=== PATIENT | male | born 1940 | race African-American/Black ===

== ENCOUNTER 2022-02-10 15:16 | Inpatient (IN) ==
[2022-02-10 18:00] LABS: Basophils # 0.1 10*3/uL (0.0-0.2); Basophils % 0.6 % (0.0-0.8); Eosinophils # 0.1 10*3/uL (0.0-0.87); Eosinophils % 0.4 % (0.00-10.9); Hematocrit 35.1 VOL% (42.0-52.0); Hemoglobin 11.6 GM/DL (14.0-18.0); Immature Granulocytes % 5.2 %; Immature Granulocytes Absolute 0.89 #; Lymphocytes # 1.2 10*3/uL (1.4-4.0); Lymphocytes % 6.9 % (21.2-54.2); Mean Platelet Volume 10.5 FL (9.6-12.0); Monocytes # 1.2 10*3/uL (0.11-0.8); Monocytes % 7.1 % (1.7-12.7); Neutrophils % 79.8 % (38.7-73.9); Platelet Count 296 T/CUMM (130-400); Red Blood Count 4.13 MC/CUMM (3.8-5.5); Red Cell Distribution Width 15.9 % (9.3-17.3); White Blood Count 17.2 T/CUMM (4-12)
[2022-02-10 18:14] LABS: INR 1.2; PT Patient Result 12.8 SECS (10.5-12.0)
[2022-02-10 18:24] LABS: Albumin 2.1 G/DL (3.4-5.0); Bilirubin,Total 0.5 MG/DL (0.20-1.00); Calcium 8.6 MG/DL (8.5-10.1); Osmolality,Calculated 279.7 MOS/KG (273-304); Potassium 3.2 MMOL/L (3.5-5.1); Total Protein 6.2 G/DL (6.4-8.2)
[2022-02-10 18:32] LABS: Band Neutrophils 1 % (0-10); Lymphocytes 10 % (20-55); Myelocytes 1 %; Total Cells Counted 100
[2022-02-10 18:33] LABS: Platelet Estimate Adequate
[2022-02-10] MEDS ORDERED: AZITHROMYCIN INJ 500 MG in SODIUM CHLORIDE 0.9% 250 ML IV STA (18:50)
[2022-02-10] MEDS ORDERED: cefTRIAXone 1,000 MG in SODIUM CHLORIDE 0.9% 100 ML IV STA (18:50)
[2022-02-10 19:11] LABS: Hyaline Casts,Urine 2 /LPF (0-3); Mucus,Urine Occasional /LPF (Occasional); RBC,Urine 10 /HPF (0-4); Squamous Epithelial Cell,Urine Occasional /HPF (0-10)
[2022-02-10 19:13] LABS: Glucose,Urine (UA) Negative (Negative); Ketones,Urine Trace mg/dL (Negative); Nitrite,Urine Negative (Negative); Urine Appearance Clear (Clear); Urine Color Yellow (Yellow)
[2022-02-10 19:14] LABS: Bilirubin,Urine Small mg/dL (Negative); Blood, Urine Negative (Negative)
[2022-02-10] MEDS ORDERED: ACETAMINOPHEN 325 MG TABLET PO PRN (19:35)
[2022-02-10] MEDS ORDERED: MORPHINE 2 MG/1 ML SYRINGE IV PRN (19:35)
[2022-02-10] MEDS ORDERED: ONDANSETRON 4 MG/2 ML VIAL IV PRN (19:35)
[2022-02-10] MEDS ORDERED: GLUCAGON 1 MG VIAL IM PRN (19:35)
[2022-02-10] MEDS ORDERED: SODIUM CHLORIDE 0.9% 1,000 ML IV SCH (21:00)
[2022-02-10] MEDS: INSULIN LISPRO 100 UNIT/ML SUBCUT SCH (21:00)
[2022-02-10] MEDS ORDERED: POTASSIUM CHLORIDE 20 MEQ TABLET PO ONE (21:30)
[2022-02-11] MEDS: ALBUTEROL/IPRATROPIUM 3 ML NEB RESP TX SCH ×4 (00:15→19:15)
[2022-02-11 03:03] LABS: Basophils # 0.1 10*3/uL (0.0-0.2); Basophils % 0.7 % (0.0-0.8); Eosinophils # 0.2 10*3/uL (0.0-0.87); Hematocrit 31.6 VOL% (42.0-52.0); Hemoglobin 10.6 GM/DL (14.0-18.0); Immature Granulocytes Absolute 1.03 #; Lymphocytes # 1.6 10*3/uL (1.4-4.0); Lymphocytes % 10.7 % (21.2-54.2); Mean Corpuscular HGB Conc 33.5 GM/DL (32-36); Mean Corpuscular Volume 84.3 FL (87-102); Mean Platelet Volume 10.1 FL (9.6-12.0); Monocytes # 1.2 10*3/uL (0.11-0.8); Neutrophils % 72.6 % (38.7-73.9); Platelet Count 272 T/CUMM (130-400); Red Blood Count 3.75 MC/CUMM (3.8-5.5); Red Cell Distribution Width 15.8 % (9.3-17.3); White Blood Count 14.8 T/CUMM (4-12)
[2022-02-11 03:38] LABS: Band Neutrophils 1 % (0-10); Eosinophils 1 % (0-10); Lymphocytes 8 % (20-55); Platelet Estimate Adequate; Total Cells Counted 100
[2022-02-11 03:47] LABS: Albumin 1.7 G/DL (3.4-5.0); Bilirubin,Total 0.4 MG/DL (0.20-1.00); Calcium 8.6 MG/DL (8.5-10.1); Osmolality,Calculated 280.7 MOS/KG (273-304); Potassium 3.4 MMOL/L (3.5-5.1); Thyroid Stimulating Hormone 1.19 uIU/ml (0.358-3.74); Total Protein 6.1 G/DL (6.4-8.2)
[2022-02-11] MEDS: PANTOPRAZOLE 40 MG TABLET PO SCH (06:29)
[2022-02-11] MEDS: INSULIN LISPRO 100 UNIT/ML SUBCUT SCH ×4 (08:53→21:13)
[2022-02-11] MEDS ORDERED: MAGNESIUM SULF RIDER 2 GM/50 ML PREMIX IV ONE (16:17)
[2022-02-11] MEDS ORDERED: POTASSIUM CHLORIDE 10 MEQ TABLET PO ONE (16:18)
[2022-02-11] MEDS: cefTRIAXone 1,000 MG in SODIUM CHLORIDE 0.9% 100 ML IV SCH (20:48)
[2022-02-11] MEDS: SACUBITRIL/VALSARTAN 49-51 MG TABLET PO SCH (20:48)
[2022-02-11] MEDS: ROSUVASTATIN 10 MG TABLET PO SCH (20:48)
[2022-02-11] MEDS ORDERED: AMIODARONE 200 MG TABLET PO SCH (21:00)
[2022-02-11] MEDS: AZITHROMYCIN INJ 500 MG in SODIUM CHLORIDE 0.9% 250 ML IV SCH (21:20)
[2022-02-12] MEDS: ALBUTEROL/IPRATROPIUM 3 ML NEB RESP TX SCH ×4 (01:09→20:05)
[2022-02-12 05:22] LABS: Basophils # 0.1 10*3/uL (0.0-0.2); Basophils % 0.4 % (0.0-0.8); Eosinophils # 0.3 10*3/uL (0.0-0.87); Eosinophils % 1.2 % (0.00-10.9); Hematocrit 29.8 VOL% (42.0-52.0); Hemoglobin 10.1 GM/DL (14.0-18.0); Immature Granulocytes % 5.4 %; Immature Granulocytes Absolute 1.16 #; Lymphocytes # 1.7 10*3/uL (1.4-4.0); Lymphocytes % 7.7 % (21.2-54.2); Mean Corpuscular HGB Conc 33.9 GM/DL (32-36); Mean Corpuscular Volume 84.4 FL (87-102); Mean Platelet Volume 10.8 FL (9.6-12.0); Monocytes # 1.6 10*3/uL (0.11-0.8); Monocytes % 7.4 % (1.7-12.7); Neutrophils % 77.9 % (38.7-73.9); Platelet Count 300 T/CUMM (130-400); Red Blood Count 3.53 MC/CUMM (3.8-5.5); Red Cell Distribution Width 15.9 % (9.3-17.3); White Blood Count 21.6 T/CUMM (4-12)
[2022-02-12] MEDS: PANTOPRAZOLE 40 MG TABLET PO SCH (05:43)
[2022-02-12 05:46] LABS: Calcium 7.8 MG/DL (8.5-10.1); Osmolality,Calculated 282.3 MOS/KG (273-304); Potassium 3.3 MMOL/L (3.5-5.1)
[2022-02-12 05:47] LABS: Eosinophils 2 % (0-10); Lymphocytes 6 % (20-55); Platelet Estimate Adequate; Total Cells Counted 100
[2022-02-12 05:56] LABS: Risk Ratio 3.93; VLDL Cholesterol 18.2 MG/DL
[2022-02-12] MEDS ORDERED: POTASSIUM CHLORIDE 20 MEQ TABLET PO ONE (08:58)
[2022-02-12] MEDS ORDERED: MAGNESIUM SULF RIDER 2 GM/50 ML PREMIX IV ONE (08:59)
[2022-02-12] MEDS: SACUBITRIL/VALSARTAN 49-51 MG TABLET PO SCH ×2 (09:24→22:20)
[2022-02-12] MEDS: METOPROLOL SUCCINATE XL 25 MG TABLET PO SCH (09:24)
[2022-02-12] MEDS: AMIODARONE 200 MG TABLET PO SCH ×2 (09:24→22:20)
[2022-02-12] MEDS: INSULIN LISPRO 100 UNIT/ML SUBCUT SCH ×4 (09:26→22:20)
[2022-02-12] MEDS: MAGNESIUM OXIDE 400 MG TABLET PO SCH ×2 (09:29→22:20)
[2022-02-12] MEDS: APIXABAN 5 MG TABLET PO SCH ×2 (09:29→22:20)
[2022-02-12] MEDS: DEXTROSE 10% 250 ML BAG IV PRN (19:27)
[2022-02-12] MEDS: ROSUVASTATIN 10 MG TABLET PO SCH (22:20)
[2022-02-12] MEDS: cefTRIAXone 1,000 MG in SODIUM CHLORIDE 0.9% 100 ML IV SCH (22:20)
[2022-02-12] MEDS: AZITHROMYCIN INJ 500 MG in SODIUM CHLORIDE 0.9% 250 ML IV SCH (23:14)
[2022-02-13] MEDS: ALBUTEROL/IPRATROPIUM 3 ML NEB RESP TX SCH ×4 (01:30→19:26)
[2022-02-13 05:12] LABS: Basophils # 0.1 10*3/uL (0.0-0.2); Basophils % 0.6 % (0.0-0.8); Eosinophils # 0.3 10*3/uL (0.0-0.87); Eosinophils % 1.5 % (0.00-10.9); Hematocrit 30.8 VOL% (42.0-52.0); Hemoglobin 10.3 GM/DL (14.0-18.0); Immature Granulocytes % 5.8 %; Immature Granulocytes Absolute 1.23 #; Lymphocytes # 1.7 10*3/uL (1.4-4.0); Mean Corpuscular HGB Conc 33.4 GM/DL (32-36); Mean Corpuscular Volume 83.2 FL (87-102); Mean Platelet Volume 10.3 FL (9.6-12.0); Monocytes # 1.3 10*3/uL (0.11-0.8); Monocytes % 6.1 % (1.7-12.7); Platelet Count 309 T/CUMM (130-400); Red Cell Distribution Width 15.7 % (9.3-17.3); White Blood Count 21.3 T/CUMM (4-12)
[2022-02-13 05:28] LABS: Calcium 8.5 MG/DL (8.5-10.1); Osmolality,Calculated 276.5 MOS/KG (273-304); Potassium 3.2 MMOL/L (3.5-5.1)
[2022-02-13 05:39] LABS: Lymphocytes 10 % (20-55); Platelet Estimate Normal; Total Cells Counted 100
[2022-02-13] MEDS: PANTOPRAZOLE 40 MG TABLET PO SCH (05:43)
[2022-02-13 09:14] LABS: % Iron Saturation 14.3 % (18-50)
[2022-02-13] MEDS ORDERED: POTASSIUM CHLORIDE 20 MEQ TABLET PO ONE (09:30)
[2022-02-13] MEDS: AMIODARONE 200 MG TABLET PO SCH ×2 (10:19→21:35)
[2022-02-13] MEDS: ASPIRIN CHEW 81 MG TABLET PO SCH (10:19)
[2022-02-13] MEDS: APIXABAN 5 MG TABLET PO SCH ×2 (10:19→20:28)
[2022-02-13] MEDS: SACUBITRIL/VALSARTAN 49-51 MG TABLET PO SCH ×2 (10:19→20:27)
[2022-02-13] MEDS: MAGNESIUM OXIDE 400 MG TABLET PO SCH ×2 (10:19→20:28)
[2022-02-13] MEDS: METOPROLOL SUCCINATE XL 25 MG TABLET PO SCH (10:19)
[2022-02-13] MEDS: INSULIN LISPRO 100 UNIT/ML SUBCUT SCH ×4 (11:07→21:36)
[2022-02-13] MEDS: DEXTROSE 10% 250 ML BAG IV PRN (15:15)
[2022-02-13] MEDS: DEXT 5% NACL 0.9% KCL 40 MEQ 40 MEQ/1,000 ML BAG IV SCH (17:13)
[2022-02-13] MEDS: ROSUVASTATIN 10 MG TABLET PO SCH (20:28)
[2022-02-13] MEDS: cefTRIAXone 1,000 MG in SODIUM CHLORIDE 0.9% 100 ML IV SCH (20:29)
[2022-02-13] MEDS: AZITHROMYCIN INJ 500 MG in SODIUM CHLORIDE 0.9% 250 ML IV SCH (20:29)
[2022-02-14] MEDS: ALBUTEROL/IPRATROPIUM 3 ML NEB RESP TX SCH ×4 (00:25→19:31)
[2022-02-14] MEDS: PANTOPRAZOLE 40 MG TABLET PO SCH (05:48)
[2022-02-14] MEDS: DEXT 5% NACL 0.9% KCL 40 MEQ 40 MEQ/1,000 ML BAG IV SCH ×2 (05:48→23:07)
[2022-02-14] MEDS: FERRIC GLUCONATE COMPLEX 125 MG in SODIUM CHLORIDE 0.9% 100 ML IV SCH (09:23)
[2022-02-14] MEDS: ASPIRIN CHEW 81 MG TABLET PO SCH (09:23)
[2022-02-14] MEDS: CHOLECALCIFEROL 5,000 UNIT TABLET PO SCH (09:23)
[2022-02-14] MEDS: METOPROLOL SUCCINATE XL 25 MG TABLET PO SCH (09:23)
[2022-02-14] MEDS: AMIODARONE 200 MG TABLET PO SCH ×2 (09:23→21:01)
[2022-02-14] MEDS: SACUBITRIL/VALSARTAN 49-51 MG TABLET PO SCH ×2 (09:23→21:01)
[2022-02-14] MEDS: APIXABAN 5 MG TABLET PO SCH ×2 (09:23→21:01)
[2022-02-14] MEDS: MAGNESIUM OXIDE 400 MG TABLET PO SCH ×2 (09:23→21:01)
[2022-02-14] MEDS: INSULIN LISPRO 100 UNIT/ML SUBCUT SCH ×4 (09:24→23:07)
[2022-02-14] MEDS ORDERED: ONDANSETRON 4 MG/2 ML VIAL IV ONE (13:40)
[2022-02-14] MEDS: ROSUVASTATIN 10 MG TABLET PO SCH (21:01)
[2022-02-14] MEDS: TEMAZEPAM 15 MG CAPSULE PO SCH (21:01)
[2022-02-14] MEDS: cefTRIAXone 1,000 MG in SODIUM CHLORIDE 0.9% 100 ML IV SCH (21:02)
[2022-02-14] MEDS: AZITHROMYCIN INJ 500 MG in SODIUM CHLORIDE 0.9% 250 ML IV SCH (21:02)
[2022-02-15] MEDS: ALBUTEROL/IPRATROPIUM 3 ML NEB RESP TX SCH ×4 (00:06→19:40)
[2022-02-15] MEDS: PANTOPRAZOLE 40 MG TABLET PO SCH ×2 (05:18→22:08)
[2022-02-15] MEDS: DEXT 5% NACL 0.9% KCL 40 MEQ 40 MEQ/1,000 ML BAG IV SCH ×2 (05:19→08:20)
[2022-02-15 05:28] LABS: Basophils # 0.1 10*3/uL (0.0-0.2); Basophils % 0.7 % (0.0-0.8); Eosinophils # 0.4 10*3/uL (0.0-0.87); Eosinophils % 2.2 % (0.00-10.9); Hemoglobin 10.2 GM/DL (14.0-18.0); Immature Granulocytes % 5.2 %; Lymphocytes # 1.5 10*3/uL (1.4-4.0); Lymphocytes % 7.8 % (21.2-54.2); Mean Corpuscular HGB Conc 32.9 GM/DL (32-36); Mean Corpuscular Volume 85.9 FL (87-102); Mean Platelet Volume 10.3 FL (9.6-12.0); Monocytes # 1.2 10*3/uL (0.11-0.8); Monocytes % 6.4 % (1.7-12.7); Neutrophils % 77.7 % (38.7-73.9); Platelet Count 378 T/CUMM (130-400); Red Blood Count 3.61 MC/CUMM (3.8-5.5); White Blood Count 19.2 T/CUMM (4-12)
[2022-02-15 05:43] LABS: Calcium 8.3 MG/DL (8.5-10.1); Osmolality,Calculated 281.1 MOS/KG (273-304); Potassium 3.6 MMOL/L (3.5-5.1)
[2022-02-15 06:03] LABS: Lymphocytes 9 % (20-55); Myelocytes 1 %; Total Cells Counted 100
[2022-02-15 06:04] LABS: Hypochromia Slight; Target Cells Slight
[2022-02-15 06:05] LABS: Microcytosis 1+
[2022-02-15 06:06] LABS: Platelet Estimate Normal
[2022-02-15] MEDS: INSULIN LISPRO 100 UNIT/ML SUBCUT SCH ×4 (08:14→21:41)
[2022-02-15] MEDS: DEXTROSE 10% 250 ML BAG IV PRN ×2 (09:54→12:06)
[2022-02-15] MEDS: METOPROLOL SUCCINATE XL 25 MG TABLET PO SCH (11:10)
[2022-02-15] MEDS: SACUBITRIL/VALSARTAN 49-51 MG TABLET PO SCH ×2 (11:10→21:41)
[2022-02-15] MEDS: AMIODARONE 200 MG TABLET PO SCH ×2 (11:11→21:41)
[2022-02-15] MEDS: APIXABAN 5 MG TABLET PO SCH ×2 (11:12→21:41)
[2022-02-15] MEDS: MAGNESIUM OXIDE 400 MG TABLET PO SCH ×2 (11:12→21:41)
[2022-02-15] MEDS: CHOLECALCIFEROL 5,000 UNIT TABLET PO SCH (11:13)
[2022-02-15] MEDS: ASPIRIN CHEW 81 MG TABLET PO SCH (11:13)
[2022-02-15] MEDS: FERRIC GLUCONATE COMPLEX 125 MG in SODIUM CHLORIDE 0.9% 100 ML IV SCH (11:15)
[2022-02-15 12:58] LABS: AFP Tumor 2.6 NG/ML (0-8); Cancer Antigen 19-9 32.89 U/ML (0-35)
[2022-02-15] MEDS: DEXTROSE 5% 1,000 ML IV SCH (15:48)
[2022-02-15] MEDS: cefTRIAXone 1,000 MG in SODIUM CHLORIDE 0.9% 100 ML IV SCH (21:41)
[2022-02-15] MEDS: ROSUVASTATIN 10 MG TABLET PO SCH (21:41)
[2022-02-15] MEDS: TEMAZEPAM 15 MG CAPSULE PO SCH (21:41)
[2022-02-15] MEDS: AZITHROMYCIN INJ 500 MG in SODIUM CHLORIDE 0.9% 250 ML IV SCH (22:11)
[2022-02-16] MEDS: ALBUTEROL/IPRATROPIUM 3 ML NEB RESP TX SCH ×4 (00:40→19:37)
[2022-02-16 04:58] LABS: Basophils # 0.1 10*3/uL (0.0-0.2); Basophils % 0.4 % (0.0-0.8); Eosinophils # 0.4 10*3/uL (0.0-0.87); Eosinophils % 2.6 % (0.00-10.9); Hematocrit 30.6 VOL% (42.0-52.0); Hemoglobin 10.1 GM/DL (14.0-18.0); Immature Granulocytes % 4.3 %; Immature Granulocytes Absolute 0.72 #; Lymphocytes # 1.4 10*3/uL (1.4-4.0); Lymphocytes % 8.1 % (21.2-54.2); Mean Corpuscular Volume 84.8 FL (87-102); Mean Platelet Volume 10.3 FL (9.6-12.0); Monocytes # 1.3 10*3/uL (0.11-0.8); Monocytes % 7.6 % (1.7-12.7); NRBC # 0.02 10*3/uL; Platelet Count 367 T/CUMM (130-400); Red Blood Count 3.61 MC/CUMM (3.8-5.5); Red Cell Distribution Width 15.9 % (9.3-17.3); White Blood Count 16.7 T/CUMM (4-12)
[2022-02-16] MEDS: DEXTROSE 5% 1,000 ML IV SCH (05:00)
[2022-02-16 05:21] LABS: Lymphocytes 7 % (20-55); Metamyelocytes 1 %; Microcytosis 1+; Total Cells Counted 100
[2022-02-16 05:22] LABS: Hypochromia Slight; Target Cells Slight
[2022-02-16 05:38] LABS: Calcium 8.3 MG/DL (8.5-10.1); Osmolality,Calculated 277.4 MOS/KG (273-304)
[2022-02-16] MEDS: PANTOPRAZOLE 40 MG TABLET PO SCH (06:12)
[2022-02-16] MEDS: INSULIN LISPRO 100 UNIT/ML SUBCUT SCH ×4 (08:57→23:02)
[2022-02-16] MEDS: APIXABAN 5 MG TABLET PO SCH ×2 (10:22→21:30)
[2022-02-16] MEDS: ASPIRIN CHEW 81 MG TABLET PO SCH (10:22)
[2022-02-16] MEDS: MAGNESIUM OXIDE 400 MG TABLET PO SCH ×2 (10:23→21:30)
[2022-02-16] MEDS: AMIODARONE 200 MG TABLET PO SCH ×2 (10:23→21:30)
[2022-02-16] MEDS: METOPROLOL SUCCINATE XL 25 MG TABLET PO SCH (10:23)
[2022-02-16] MEDS: CHOLECALCIFEROL 5,000 UNIT TABLET PO SCH (10:24)
[2022-02-16] MEDS: SACUBITRIL/VALSARTAN 49-51 MG TABLET PO SCH ×2 (10:24→21:30)
[2022-02-16] MEDS: FERRIC GLUCONATE COMPLEX 125 MG in SODIUM CHLORIDE 0.9% 100 ML IV SCH (10:27)
[2022-02-16] MEDS ORDERED: POTASSIUM CHLORIDE 20 MEQ TABLET PO ONE (10:30)
[2022-02-16] MEDS ORDERED: MAGNESIUM SULF RIDER 2 GM/50 ML PREMIX IV ONE (11:00)
[2022-02-16] MEDS: TEMAZEPAM 15 MG CAPSULE PO SCH (21:30)
[2022-02-16] MEDS: ROSUVASTATIN 10 MG TABLET PO SCH (21:30)
[2022-02-16] MEDS: cefTRIAXone 1,000 MG in SODIUM CHLORIDE 0.9% 100 ML IV SCH (21:30)
[2022-02-16] MEDS: AZITHROMYCIN INJ 500 MG in SODIUM CHLORIDE 0.9% 250 ML IV SCH (22:00)
[2022-02-17] MEDS: ALBUTEROL/IPRATROPIUM 3 ML NEB RESP TX SCH ×3 (00:58→14:37)
[2022-02-17 04:52] LABS: Basophils # 0.1 10*3/uL (0.0-0.2); Basophils % 0.4 % (0.0-0.8); Eosinophils # 0.4 10*3/uL (0.0-0.87); Eosinophils % 2.5 % (0.00-10.9); Hemoglobin 10.3 GM/DL (14.0-18.0); Immature Granulocytes % 4.3 %; Immature Granulocytes Absolute 0.75 #; Lymphocytes # 1.5 10*3/uL (1.4-4.0); Lymphocytes % 8.5 % (21.2-54.2); Mean Corpuscular HGB Conc 33.2 GM/DL (32-36); Mean Corpuscular Volume 85.2 FL (87-102); Mean Platelet Volume 10.4 FL (9.6-12.0); Monocytes # 1.3 10*3/uL (0.11-0.8); Monocytes % 7.5 % (1.7-12.7); NRBC # 0.03 10*3/uL; Neutrophils % 76.8 % (38.7-73.9); Platelet Count 450 T/CUMM (130-400); Red Blood Count 3.64 MC/CUMM (3.8-5.5); Red Cell Distribution Width 15.8 % (9.3-17.3); White Blood Count 17.4 T/CUMM (4-12)
[2022-02-17 05:05] LABS: Calcium 8.6 MG/DL (8.5-10.1); Osmolality,Calculated 279.3 MOS/KG (273-304); Potassium 3.3 MMOL/L (3.5-5.1)
[2022-02-17 05:16] LABS: Eosinophils 2 % (0-10); Lymphocytes 9 % (20-55); Platelet Estimate Adequate; Total Cells Counted 100
[2022-02-17 05:17] LABS: Hypochromia Slight; Microcytosis Slight
[2022-02-17] MEDS: PANTOPRAZOLE 40 MG TABLET PO SCH (05:30)
[2022-02-17] MEDS ORDERED: POTASSIUM CHLORIDE 20 MEQ TABLET PO ONE (09:20)
[2022-02-17] MEDS ORDERED: ONDANSETRON 4 MG TABLET PO PRN (09:26)
[2022-02-17] MEDS: INSULIN LISPRO 100 UNIT/ML SUBCUT SCH ×2 (09:45→11:05)
[2022-02-17] MEDS: MAGNESIUM OXIDE 400 MG TABLET PO SCH (11:01)
[2022-02-17] MEDS: SACUBITRIL/VALSARTAN 49-51 MG TABLET PO SCH (11:01)
[2022-02-17] MEDS: ASPIRIN CHEW 81 MG TABLET PO SCH (11:01)
[2022-02-17] MEDS: CHOLECALCIFEROL 5,000 UNIT TABLET PO SCH (11:02)
[2022-02-17] MEDS: APIXABAN 5 MG TABLET PO SCH (11:02)
[2022-02-17] MEDS: AMIODARONE 200 MG TABLET PO SCH (11:02)
[2022-02-17] MEDS: METOPROLOL SUCCINATE XL 25 MG TABLET PO SCH (11:02)
[2022-02-17] MEDS: FERRIC GLUCONATE COMPLEX 125 MG in SODIUM CHLORIDE 0.9% 100 ML IV SCH (11:02)
[2022-02-17 16:39] VITALS: BP 118/72
[2022-02-18] MEDS ORDERED: LEVOFLOXACIN 750 MG TABLET PO SCH (09:00)
== END 2022-02-17 16:40 | disposition swing bed (61) | DRG 193 ==
LOC: N.ED 15:16 → N.EDINP 19:35 → N.TELES 02-11 02:45
PROVIDERS: ADMIT Internal Medicine; ATTEND Internal Medicine

== ENCOUNTER 2022-04-20 20:21 | Observation (INO) ==
[2022-04-20] MEDS ORDERED: MORPHINE 2 MG/1 ML SYRINGE IV STA (20:54)
[2022-04-20] MEDS ORDERED: PANTOPRAZOLE 40 MG VIAL IV STA (20:54)
[2022-04-20] MEDS ORDERED: ONDANSETRON 4 MG/2 ML VIAL IV STA (20:54)
[2022-04-20] MEDS ORDERED: SODIUM CHLORIDE 0.9% 500 ML IV STA ×2 (20:54→22:23)
[2022-04-20] MEDS ORDERED: METOCLOPRAMIDE 10 MG/2 ML VIAL IV STA (20:54)
[2022-04-20 21:11] LABS: Basophils # 0.1 10*3/uL (0.0-0.2); Basophils % 0.7 % (0.0-0.8); Eosinophils # 0.1 10*3/uL (0.0-0.87); Eosinophils % 0.9 % (0.00-10.9); Hematocrit 30.6 VOL% (42.0-52.0); Hemoglobin 10.1 GM/DL (14.0-18.0); Immature Granulocytes % 0.5 %; Immature Granulocytes Absolute 0.05 #; Lymphocytes # 1.5 10*3/uL (1.4-4.0); Lymphocytes % 16.4 % (21.2-54.2); Mean Corpuscular Volume 85.2 FL (87-102); Mean Platelet Volume 11.2 FL (9.6-12.0); Monocytes # 0.7 10*3/uL (0.11-0.8); Monocytes % 7.5 % (1.7-12.7); Platelet Count 225 T/CUMM (130-400); Red Blood Count 3.59 MC/CUMM (3.8-5.5); Red Cell Distribution Width 18.4 % (9.3-17.3); White Blood Count 9.2 T/CUMM (4-12)
[2022-04-20 21:41] LABS: Potassium 4.8 MMOL/L (3.5-5.1)
[2022-04-20 21:44] LABS: Calcium 9.2 MG/DL (8.5-10.1)
[2022-04-20 21:45] LABS: Albumin 2.5 G/DL (3.4-5.0); Osmolality,Calculated 288.4 MOS/KG (273-304)
[2022-04-20 21:49] LABS: Bilirubin,Total 0.5 MG/DL (0.20-1.00); Total Protein 7.1 G/DL (6.4-8.2)
[2022-04-20] MEDS ORDERED: hydrALAZINE 20 MG/1 ML VIAL IV PRN (22:43)
[2022-04-20] MEDS ORDERED: NICOTINE 21 MG/24 HR PATCH TRANSDERM PRN (22:43)
[2022-04-20] MEDS ORDERED: diphenhydrAMINE CAP 25 MG CAPSULE PO PRN (22:43)
[2022-04-20] MEDS ORDERED: ONDANSETRON 4 MG/2 ML VIAL IV PRN (22:43)
[2022-04-20] MEDS ORDERED: ACETAMINOPHEN 325 MG TABLET PO PRN (22:43)
[2022-04-20] MEDS ORDERED: guaiFENesin/DM ER 600-30 MG TABLET PO PRN (22:43)
[2022-04-20] MEDS ORDERED: ZALEPLON 5 MG CAPSULE PO PRN (22:43)
[2022-04-20] MEDS ORDERED: MORPHINE 2 MG/1 ML SYRINGE IV PRN (22:43)
[2022-04-20] MEDS ORDERED: GLUCAGON 1 MG VIAL IM PRN (22:43)
[2022-04-20] MEDS ORDERED: PROMETHAZINE 25 MG/1 ML VIAL IM PRN (22:43)
[2022-04-20] MEDS ORDERED: DEXTROSE 10% 250 ML BAG IV PRN (22:50)
[2022-04-21 02:45] LABS: Basophils % 0.5 % (0.0-0.8); Eosinophils # 0.1 10*3/uL (0.0-0.87); Eosinophils % 1.6 % (0.00-10.9); Hematocrit 28.6 VOL% (42.0-52.0); Hemoglobin 9.3 GM/DL (14.0-18.0); Immature Granulocytes % 0.5 %; Immature Granulocytes Absolute 0.04 #; Lymphocytes # 1.5 10*3/uL (1.4-4.0); Lymphocytes % 18.5 % (21.2-54.2); Mean Corpuscular HGB Conc 32.5 GM/DL (32-36); Mean Corpuscular Volume 85.4 FL (87-102); Mean Platelet Volume 10.6 FL (9.6-12.0); Monocytes # 0.6 10*3/uL (0.11-0.8); Monocytes % 7.3 % (1.7-12.7); Neutrophils % 71.6 % (38.7-73.9); Platelet Count 200 T/CUMM (130-400); Red Blood Count 3.35 MC/CUMM (3.8-5.5); Red Cell Distribution Width 18.4 % (9.3-17.3); White Blood Count 8.1 T/CUMM (4-12)
[2022-04-21 03:24] LABS: Calcium 8.3 MG/DL (8.5-10.1); Osmolality,Calculated 290.1 MOS/KG (273-304); Potassium 4.2 MMOL/L (3.5-5.1); Risk Ratio 2.69; VLDL Cholesterol 12.6 MG/DL
[2022-04-21 07:25] LABS: Amorphous Crystals,Urine Occasional /HPF (Few); Bacteria,Urine Occasional /HPF (Few); Mucus,Urine Occasional /LPF (Occasional); RBC,Urine 6 /HPF (0-4); Squamous Epithelial Cell,Urine Occasional /HPF (0-10)
[2022-04-21 07:26] LABS: Bilirubin,Urine Negative (Negative); Blood, Urine Negative (Negative); Glucose,Urine (UA) Negative (Negative); Ketones,Urine Negative (Negative); Nitrite,Urine Negative (Negative); Protein,Urine Negative (Negative); Urine Appearance Clear (Clear); Urine Color Yellow (Yellow); Urine Urobilinogen 0.2 eU/dL (<2.0)
[2022-04-21] MEDS: INSULIN LISPRO 100 UNIT/ML SUBCUT SCH ×4 (07:39→20:38)
[2022-04-21] MEDS: PANTOPRAZOLE 40 MG VIAL IV SCH ×2 (09:55→21:51)
[2022-04-21] MEDS: NYSTATIN 500,000 UNIT/5 ML UDCUP SWISH/SWAL SCH ×4 (09:55→21:51)
[2022-04-21] MEDS: HEPARIN 5,000 UNIT/1 ML VIAL SUBCUT SCH (09:59)
[2022-04-21] MEDS: LACTATED RINGERS 1,000 ML IV SCH ×3 (10:01→21:50)
[2022-04-21] MEDS ORDERED: MAGNESIUM SULF RIDER 2 GM/50 ML PREMIX IV ONE (14:30)
[2022-04-22] MEDS: LACTATED RINGERS 1,000 ML IV SCH ×3 (05:55→17:17)
[2022-04-22 08:12] LABS: Basophils # 0.1 10*3/uL (0.0-0.2); Basophils % 0.6 % (0.0-0.8); Eosinophils # 0.1 10*3/uL (0.0-0.87); Eosinophils % 1.6 % (0.00-10.9); Hematocrit 31.6 VOL% (42.0-52.0); Hemoglobin 10.6 GM/DL (14.0-18.0); Immature Granulocytes % 0.5 %; Immature Granulocytes Absolute 0.04 #; Lymphocytes # 1.1 10*3/uL (1.4-4.0); Lymphocytes % 12.8 % (21.2-54.2); Mean Corpuscular HGB Conc 33.5 GM/DL (32-36); Mean Corpuscular Volume 85.2 FL (87-102); Mean Platelet Volume 10.9 FL (9.6-12.0); Monocytes # 0.6 10*3/uL (0.11-0.8); Monocytes % 6.9 % (1.7-12.7); Neutrophils % 77.6 % (38.7-73.9); Platelet Count 212 T/CUMM (130-400); Red Blood Count 3.71 MC/CUMM (3.8-5.5); Red Cell Distribution Width 18.3 % (9.3-17.3); White Blood Count 8.9 T/CUMM (4-12)
[2022-04-22] MEDS: INSULIN LISPRO 100 UNIT/ML SUBCUT SCH ×4 (08:16→22:40)
[2022-04-22 08:30] LABS: Calcium 9.1 MG/DL (8.5-10.1); Osmolality,Calculated 285.1 MOS/KG (273-304); Potassium 3.7 MMOL/L (3.5-5.1)
[2022-04-22] MEDS ORDERED: MAGNESIUM SULF RIDER 4 GM/100 ML PREMIX IV ONE (08:35)
[2022-04-22] MEDS: NYSTATIN 500,000 UNIT/5 ML UDCUP SWISH/SWAL SCH ×4 (09:20→21:49)
[2022-04-22] MEDS: PANTOPRAZOLE 40 MG VIAL IV SCH ×2 (09:21→21:52)
[2022-04-22] MEDS ORDERED: ETOMIDATE 20 MG/10 ML VIAL IV ONE ×2 (13:08→13:29)
[2022-04-22] MEDS ORDERED: LIDOCAINE 2% 5 ML VIAL ONE (13:09)
[2022-04-22] MEDS: METOPROLOL SUCCINATE XL 25 MG TABLET PO SCH (14:19)
[2022-04-22] MEDS ORDERED: SACUBITRIL/VALSARTAN 49-51 MG TABLET PO SCH (21:00)
[2022-04-22] MEDS: AMIODARONE 200 MG TABLET PO SCH (21:49)
[2022-04-22] MEDS: ROSUVASTATIN 10 MG TABLET PO SCH (21:49)
[2022-04-22] MEDS: MAGNESIUM OXIDE 400 MG TABLET PO SCH (21:49)
[2022-04-22] MEDS: HEPARIN 5,000 UNIT/1 ML VIAL SUBCUT SCH (21:49)
[2022-04-23] MEDS: LACTATED RINGERS 1,000 ML IV SCH ×3 (01:30→18:33)
[2022-04-23 05:03] LABS: Basophils % 0.5 % (0.0-0.8); Eosinophils # 0.1 10*3/uL (0.0-0.87); Eosinophils % 1.5 % (0.00-10.9); Hematocrit 28.9 VOL% (42.0-52.0); Hemoglobin 9.7 GM/DL (14.0-18.0); Immature Granulocytes % 0.7 %; Immature Granulocytes Absolute 0.06 #; Lymphocytes % 11.8 % (21.2-54.2); Mean Corpuscular HGB Conc 33.6 GM/DL (32-36); Mean Platelet Volume 10.6 FL (9.6-12.0); Monocytes # 0.9 10*3/uL (0.11-0.8); Monocytes % 10.7 % (1.7-12.7); Neutrophils % 74.8 % (38.7-73.9); Platelet Count 160 T/CUMM (130-400); Red Blood Count 3.44 MC/CUMM (3.8-5.5); Red Cell Distribution Width 17.7 % (9.3-17.3); White Blood Count 8.8 T/CUMM (4-12)
[2022-04-23 05:24] LABS: Calcium 8.8 MG/DL (8.5-10.1); Osmolality,Calculated 281.3 MOS/KG (273-304); Potassium 3.4 MMOL/L (3.5-5.1)
[2022-04-23] MEDS: INSULIN LISPRO 100 UNIT/ML SUBCUT SCH ×3 (11:16→22:10)
[2022-04-23] MEDS: MAGNESIUM OXIDE 400 MG TABLET PO SCH ×2 (11:22→22:09)
[2022-04-23] MEDS: METOPROLOL SUCCINATE XL 25 MG TABLET PO SCH (11:22)
[2022-04-23] MEDS: HEPARIN 5,000 UNIT/1 ML VIAL SUBCUT SCH ×2 (11:22→22:10)
[2022-04-23] MEDS: AMIODARONE 200 MG TABLET PO SCH ×2 (11:22→22:09)
[2022-04-23] MEDS: ASPIRIN CHEW 81 MG TABLET PO SCH (11:22)
[2022-04-23] MEDS: NYSTATIN 500,000 UNIT/5 ML UDCUP SWISH/SWAL SCH ×4 (11:22→22:09)
[2022-04-23] MEDS: PANTOPRAZOLE 40 MG VIAL IV SCH ×2 (11:22→22:11)
[2022-04-23] MEDS: POTASSIUM CHLORIDE RIDER 10 MEQ/100 ML PREMIX IV SCH (17:48)
[2022-04-23] MEDS: ROSUVASTATIN 10 MG TABLET PO SCH (22:09)
[2022-04-24] MEDS: POTASSIUM CHLORIDE RIDER 10 MEQ/100 ML PREMIX IV SCH ×2 (01:05→01:49)
[2022-04-24] MEDS: LACTATED RINGERS 1,000 ML IV SCH ×2 (03:30→18:12)
[2022-04-24 05:59] LABS: Basophils % 0.3 % (0.0-0.8); Eosinophils # 0.1 10*3/uL (0.0-0.87); Eosinophils % 1.5 % (0.00-10.9); Hematocrit 29.5 VOL% (42.0-52.0); Hemoglobin 9.9 GM/DL (14.0-18.0); Immature Granulocytes % 0.5 %; Immature Granulocytes Absolute 0.05 #; Lymphocytes # 1.3 10*3/uL (1.4-4.0); Lymphocytes % 14.5 % (21.2-54.2); Mean Corpuscular HGB Conc 33.6 GM/DL (32-36); Mean Corpuscular Volume 82.9 FL (87-102); Mean Platelet Volume 10.9 FL (9.6-12.0); Monocytes # 1.1 10*3/uL (0.11-0.8); Monocytes % 12.4 % (1.7-12.7); Neutrophils % 70.8 % (38.7-73.9); Platelet Count 145 T/CUMM (130-400); Red Blood Count 3.56 MC/CUMM (3.8-5.5); Red Cell Distribution Width 17.6 % (9.3-17.3); White Blood Count 9.1 T/CUMM (4-12)
[2022-04-24 06:17] LABS: Calcium 8.9 MG/DL (8.5-10.1); Osmolality,Calculated 278.3 MOS/KG (273-304); Potassium 2.8 MMOL/L (3.5-5.1)
[2022-04-24] MEDS ORDERED: MAGNESIUM SULF RIDER 2 GM/50 ML PREMIX IV ONE (07:41)
[2022-04-24] MEDS ORDERED: POTASSIUM CHLORIDE 20 MEQ TABLET PO ONE (07:42)
[2022-04-24] MEDS: HEPARIN 5,000 UNIT/1 ML VIAL SUBCUT SCH ×2 (08:41→21:23)
[2022-04-24] MEDS: PANTOPRAZOLE 40 MG VIAL IV SCH ×2 (08:41→21:23)
[2022-04-24] MEDS: NYSTATIN 500,000 UNIT/5 ML UDCUP SWISH/SWAL SCH ×4 (08:42→21:23)
[2022-04-24] MEDS: AMIODARONE 200 MG TABLET PO SCH ×2 (08:42→21:23)
[2022-04-24] MEDS: MAGNESIUM OXIDE 400 MG TABLET PO SCH ×2 (08:42→21:23)
[2022-04-24] MEDS: ASPIRIN CHEW 81 MG TABLET PO SCH (08:42)
[2022-04-24] MEDS: METOPROLOL SUCCINATE XL 25 MG TABLET PO SCH (08:42)
[2022-04-24] MEDS: INSULIN LISPRO 100 UNIT/ML SUBCUT SCH ×4 (08:43→21:33)
[2022-04-24] MEDS ORDERED: SKIN HEALING OINT (AQUAPHOR) 50 GM TUBE TOP PRN (14:17)
[2022-04-24] MEDS: SODIUM CHLOR 0.45% KCL 20 MEQ 20 MEQ/1,000 ML BAG IV SCH (18:33)
[2022-04-24] MEDS: ROSUVASTATIN 10 MG TABLET PO SCH (21:23)
[2022-04-25] MEDS: METOPROLOL SUCCINATE XL 25 MG TABLET PO SCH (09:00)
[2022-04-25] MEDS: NYSTATIN 500,000 UNIT/5 ML UDCUP SWISH/SWAL SCH ×4 (09:00→20:45)
[2022-04-25] MEDS: MAGNESIUM OXIDE 400 MG TABLET PO SCH ×2 (09:00→20:45)
[2022-04-25] MEDS: PANTOPRAZOLE 40 MG VIAL IV SCH ×2 (09:00→20:45)
[2022-04-25] MEDS: AMIODARONE 200 MG TABLET PO SCH ×2 (09:00→20:45)
[2022-04-25] MEDS: HEPARIN 5,000 UNIT/1 ML VIAL SUBCUT SCH ×2 (09:00→20:45)
[2022-04-25] MEDS: SODIUM CHLOR 0.45% KCL 20 MEQ 20 MEQ/1,000 ML BAG IV SCH (09:00)
[2022-04-25] MEDS: ASPIRIN CHEW 81 MG TABLET PO SCH (09:00)
[2022-04-25 10:08] LABS: Basophils % 0.2 % (0.0-0.8); Eosinophils # 0.1 10*3/uL (0.0-0.87); Eosinophils % 0.7 % (0.00-10.9); Hematocrit 29.8 VOL% (42.0-52.0); Hemoglobin 9.9 GM/DL (14.0-18.0); Immature Granulocytes % 0.9 %; Immature Granulocytes Absolute 0.14 #; Lymphocytes % 6.3 % (21.2-54.2); Mean Corpuscular HGB Conc 33.2 GM/DL (32-36); Mean Platelet Volume 11.2 FL (9.6-12.0); Monocytes % 13.3 % (1.7-12.7); Neutrophils % 78.6 % (38.7-73.9); Red Blood Count 3.59 MC/CUMM (3.8-5.5); Red Cell Distribution Width 17.6 % (9.3-17.3); White Blood Count 15.1 T/CUMM (4-12)
[2022-04-25 10:10] LABS: Platelet Count 126 T/CUMM (130-400)
[2022-04-25 10:25] LABS: Calcium 8.7 MG/DL (8.5-10.1); Osmolality,Calculated 279.4 MOS/KG (273-304); Potassium 3.3 MMOL/L (3.5-5.1)
[2022-04-25] MEDS: INSULIN LISPRO 100 UNIT/ML SUBCUT SCH ×4 (10:51→21:46)
[2022-04-25] MEDS ORDERED: POTASSIUM CHLORIDE 20 MEQ TABLET PO ONE (11:25)
[2022-04-25] MEDS: ROSUVASTATIN 10 MG TABLET PO SCH (20:45)
[2022-04-26 06:25] LABS: Basophils % 0.2 % (0.0-0.8); Eosinophils # 0.1 10*3/uL (0.0-0.87); Eosinophils % 0.5 % (0.00-10.9); Hematocrit 28.7 VOL% (42.0-52.0); Hemoglobin 9.7 GM/DL (14.0-18.0); Immature Granulocytes % 1.1 %; Immature Granulocytes Absolute 0.19 #; Lymphocytes # 1.1 10*3/uL (1.4-4.0); Lymphocytes % 6.1 % (21.2-54.2); Mean Corpuscular HGB Conc 33.8 GM/DL (32-36); Mean Corpuscular Volume 82.9 FL (87-102); Mean Platelet Volume 11.3 FL (9.6-12.0); Monocytes # 2.2 10*3/uL (0.11-0.8); Monocytes % 12.8 % (1.7-12.7); Neutrophils % 79.3 % (38.7-73.9); Platelet Count 117 T/CUMM (130-400); Red Blood Count 3.46 MC/CUMM (3.8-5.5); Red Cell Distribution Width 17.5 % (9.3-17.3); White Blood Count 17.3 T/CUMM (4-12)
[2022-04-26 06:58] LABS: Calcium 8.3 MG/DL (8.5-10.1); Osmolality,Calculated 280.3 MOS/KG (273-304); Potassium 2.8 MMOL/L (3.5-5.1)
[2022-04-26] MEDS: POTASSIUM CHLORIDE 20 MEQ TABLET PO SCH ×2 (07:54→10:03)
[2022-04-26] MEDS: ASPIRIN CHEW 81 MG TABLET PO SCH (08:01)
[2022-04-26] MEDS: HEPARIN 5,000 UNIT/1 ML VIAL SUBCUT SCH (08:01)
[2022-04-26] MEDS: AMIODARONE 200 MG TABLET PO SCH (08:01)
[2022-04-26] MEDS: METOPROLOL SUCCINATE XL 25 MG TABLET PO SCH (08:01)
[2022-04-26] MEDS: NYSTATIN 500,000 UNIT/5 ML UDCUP SWISH/SWAL SCH ×2 (08:01→12:03)
[2022-04-26] MEDS: MAGNESIUM OXIDE 400 MG TABLET PO SCH (08:01)
[2022-04-26] MEDS: INSULIN LISPRO 100 UNIT/ML SUBCUT SCH ×2 (08:58→11:38)
[2022-04-26] MEDS: PANTOPRAZOLE 40 MG VIAL IV SCH (09:06)
[2022-04-26 12:24] VITALS: BP 107/63
== END 2022-04-26 15:54 | disposition home health service (06) ==
LOC: EDUNIT# → N.ED 20:21 → INTOOBSV 22:43 → N.EDINP 22:43 → SUATTDRO 22:43 → N.TELES 23:33
PROVIDERS: ADMIT Internal Medicine; ATTEND Internal Medicine